=== PATIENT | female | born 1995 | race Hispanic/Latino ===

== ENCOUNTER 2023-06-14 08:25 | Emergency (ER) | payer OTHER ==
[~2023-06-14] VITALS: Ht 172.7 cm; Wt 90.7 kg
[~2023-06-14 08:25] MED LIST: NORCO 5-325 TA1 EACH PO; ZOFRAN ODT8 MG PO
[2023-06-14 08:54] LABS: BASOPHILS 0.3 % (0-2); EOSINOPHILS 0.6 % (0-6); HEMATOCRIT 44.1 % (35.0-50.0); HEMOGLOBIN 14.6 g/dL (12.0-18.0); LYMPHOCYTES 18.5 % (24-44); MCH 29.4 (27-36); MCHC 33.2 g/dl (30-36); MCV 88.5 fl (81-99); MONOCYTES 6.6 % (0-12); PLATELET COUNT 554 K/uL (140-440); RBC 4.98 M/ul (4.3-5.7); RDW 14.8 (10.5-15.0)
[2023-06-14 09:08] LABS: ALBUMIN 4.5 g/dL (3.4-5.0); ALCOHOL, MEDICAL <3 ng/dL (<3); ALKALINE PHOSPHATASE 134 U/L (46-116); ALT (SGPT) 231 U/L (14-59); ANION GAP 16.7 (7-21); AST (SGOT) 129 U/L (15-37); BILIRUBIN, TOTAL 0.4 ng/dL (0.2-1.0); BUN/CREATININE RATIO 2.12 (6.0-28.6); CALCIUM 9.4 mg/dL (8.5-10.1); CARBON DIOXIDE 24 mmol/L (21-32); CHLORIDE 103 mmol/L (98-107); CREATININE, SERUM 0.94 mg/dL (0.55-1.02); GLOMERULAR FILTRATION RATE,EST 85 mL/min (>60); MAGNESIUM 1.5 mg/dL (1.8-2.4); POTASSIUM 4.7 mmol/L (3.5-5.1); PROTEIN, TOTAL 9.5 g/dL (6.4-8.2); UREA NITROGEN 2 mg/dL (7-18)
[2023-06-14] MEDS ORDERED: ONDANSETRON ODT8 MG PO (09:55)
[2023-06-14 10:13] VITALS: BP 127/81
== END 2023-06-14 10:21 | disposition home or self-care (01) ==
LOC: ED 08:25
PROVIDERS: Emergency Medicine
DX: K29.20 Alcoholic gastritis without bleeding (principal); F17.200 Nicotine dependence, unspecified, uncomplicated
CPT/HCPCS: 36415; 80053; 83690; 83735; 84703; 85025; 96374; 99284-25; G0480; J2405; J7030